=== PATIENT | male | born 1995 | race Caucasian/White ===

== ENCOUNTER 2018-09-19 09:49 | Emergency (ER) | END 2018-09-19 13:21 | disposition home or self-care (01) ==

== ENCOUNTER 2018-12-01 05:12 | Emergency (ER) | payer SELFPAY ==
[~2018-12-01] VITALS: Ht 185.4 cm; Wt 103.9 kg
[~2018-12-01 05:12] MED LIST: FLOV44; PRED20TA PO; RTPRO; TRAM50TA2 PO
[2018-12-01 05:13] VITALS: Ht 185.4 cm; Wt 103.9 kg
[2018-12-01] MEDS ORDERED: KETOROLAC 60 MG INJ IM STA (06:20)
[2018-12-01] MEDS ORDERED: NAPR-985 PO (06:22)
[2018-12-01] MEDS ORDERED: HYDR-4011 PO (06:22)
[2018-12-01] MEDS ORDERED: MED4DP PO (06:22)
[2018-12-01] MEDS ORDERED: CYCL10TA7 PO (06:22)
[2018-12-01] MEDS ORDERED: DIAZEPAM 5 MG TAB PO ONE (06:30)
[2018-12-01] MEDS ORDERED: DEXAMETHASONE 10 MG/ML 1 ML INJ IM ONE (06:30)
[2018-12-01 07:09] VITALS: BP 129/75; PULSE 81; RESP 20
--- NOTE | 2018-12-01 09:05 | ERD ---
ER Documentation Chief Complaint Chief Complaint lower back pain since sat. dnies fall or trauma. works in [employer] HPI 23 yr old male complaining of back pain x 1 week. Patient works for [employer] and has pain with movement. No numbness or tingling. No changes in urination or bowel movements. Patient states it hurts with movement and feels like a spasm type pain on the lateral aspect of bilateral back. Pain is worse on the left side and it radiates down his leg. He denies any changes in urination or bowel mood. Medical problems asthma. NKDA. Surgical history denies. Social history denies ROS All systems reviewed and are negative except as per history of present illness. Medications Home Meds Active Scripts Methylprednisolone* (Medrol* DOSE PACK) 4 Mg/Dose-Pack Tab.ds.pk, 4 MG PO . DIRECTED, #1 PACKET Prov:JEROME OWENS PA-C 12/01/18 Cyclobenzaprine Hcl* (Cyclobenzaprine Hcl*) 10 Mg Tablet, 10 MG PO TID, #15 TAB Prov:JEROME OWENS PA-C 12/01/18 Naproxen* (Naprosyn*) 500 Mg Tablet, 500 MG PO BID PRN for PAIN AND/OR INFLAMMATION, #30 TAB Prov:JEROME WOENS PA-C 12/01/18 Hydrocodone/Acetaminophen ([place] 5-325 Tablet) 1 Each Tablet, 1 TAB PO Q6H PRN for PAIN, #7 TAB Prov:JEROME OWENS PA-C 12/01/18 Tramadol HCl (Tramadol HCl) 50 Mg Tablet, 50 MG PO Q6 PRN for PAIN, #20 TAB Prov:DARIN THAO MD 09/19/18 Prednisone* (Prednisone*) 20 Mg Tab, 40 MG PO DAILY for 4 Days, TAB Prov:CHELO TO PA-C 07/31/16 Reported Medications Fluticasone Propionate* (Flovent* 44) 13 Gm Aer.w.adap 12/24/10 Albuterol Sulfate* (Proventil* Neb) 3 Ml Nebu 10/14/10 Allergies Allergies: Coded Allergies: No Known Drug Allergies (Verified Allergy, Mild, 12/01/18) PMhx/Soc History of Surgery: Yes (TONSILLECTOMY @ 7 YEARS OLD) Anesthesia Reaction: No Hx Neurological Disorder: No Hx Respiratory Disorders: Yes (ASTHMA) Hx Cardiac Disorders: No Hx Psychiatric Problems: No Hx Miscellaneous Medical Probl: No Hx Alcohol Use: Yes (drink alcohol during weekends) Hx Substance Use: No Hx Tobacco Use: Yes Smoking Status: Current every day smoker FmHx Family History: No diabetes, No coronary disease, No other Physical Exam Vitals Vital Signs Date Temp Pulse Resp B/P (MAP) Pulse Ox O2 O2 Flow FiO2 Time Delivery Rate 12/01/18 97.3 81 20 129/75 97 Room Air 07:09 (93) 12/01/18 97.0 84 20 139/78 96 05:13 (98) Physical Exam GENERAL: The patient is well-appearing, well-nourished, in no acute distress CHEST: Clear to auscultation bilaterally. There are no rales, wheezes or rhonchi. HEART: Regular rate and rhythm. No murmurs, clicks, rubs or gallops. No S3 or S4. ABDOMEN:Soft, nontender and nondistended. Good bowel sounds. No rebound or guarding. No gross peritonitis. No gross organomegaly or masses. No Estrada sign or McBurney point tenderness. BACK: No midline or flank tenderness. Under to palpation over left paraspinous muscles with no midline tenderness. Pain extends down left buttock. EXTREMITIES: Equal pulses bilaterally. There is no peripheral clubbing, cyanosis or edema. No focal swelling or erythema. Full range of motion. Grossly neurovascularly intact. NEUROLOGIC: Alert and oriented. Cranial nerves II through XII intact. Motor strength in all 4 extremities with 5 out of 5 strength. Sensation grossly intact. SKIN: There is no apparent rash or petechiae. The skin is warm and dry. Results 24 hrs Current Medications Medications Dose Sig/Nancy Start Time Status Last (Trade) Ordered Route PRN Stop Time Admin Dose Reason Admin Ketorolac 60 mg ONCE STAT 12/01/18 DC 12/01/18 Tromethamine IM 06:20 12/01/18 06:34 (Toradol) 06:21 Diazepam 5 mg ONCE ONCE 12/01/18 DC 12/01/18 (Valium) PO 06:30 12/01/18 06:34 06:31 10 mg ONCE ONCE 12/01/18 DC 12/01/18 Dexamethasone IM 06:30 12/01/18 06:35 (Decadron) 06:31 Procedures/MDM ER course: Decadron Toradol and Valium given ED. MDM: 23-year-old male presenting with back pain. I do not feel that patient has bone injury as his pain is paraspinous. I do not feel x-rays are indicated. Patient is recommended to refrain from working and discharged with supportive medications. Patient is told if symptoms change or worsen to immediately return to the ER. I have low suspicion for cauda equina, discitis or epidural abscess. All questions answered at discharge. Departure Diagnosis: Primary Impression: Back pain Condition: Stable Patient Instructions: Back Pain W/ Sciatica Referrals: MICHAEL GRIFFITH MD Additional Instructions: FOLLOW UP WITH YOUR PRIMARY CARE PHYSICIAN TOMORROW.Return to this facility if you are not improving as expected. JEROME OWENS PA-C Dec 01, 2018 09:05
== END 2018-12-01 07:11 | disposition home or self-care (01) ==
LOC: FTE 05:12
DX: M54.5 Low back pain (principal); J45.909 Unspecified asthma, uncomplicated; F17.210 Nicotine dependence, cigarettes, uncomplicated
CPT/HCPCS: 96372; 99284; J1100; J1885

== ENCOUNTER 2019-04-18 13:50 | Emergency (ER) | payer OTHER ==
[~2019-04-18] VITALS: Ht 172.7 cm; Wt 115.0 kg
[~2019-04-18 13:50] MED LIST changes: +CYCL10TA7 PO; +HYDR-4011 PO; +MED4DP PO; +NAPR-985 PO
--- NOTE | 2019-04-18 14:00 | EN ---
Date/Time of Note Date/Time of Note DATE: 04/18/19 TIME: 13:59 ER Progress Note MSE in ED 3. Right foot pain after a piece of marble dropped on his right foot today. He has bruising and swelling of right foot without additional complaints. Radiologic studies initiated. COLE COBB MD April 18, 2019 14:00
[2019-04-18 14:11] VITALS: BP 151/73; PULSE 101; RESP 20; Ht 172.7 cm; Wt 115.0 kg
[2019-04-18] MEDS ORDERED: HYDROCODONE/APAP (5/325) TAB PO ONE (15:00)
[2019-04-18] MEDS ORDERED: HYDR-4011 PO (15:27)
[2019-04-18] MEDS ORDERED: IBUP-1542 PO (15:27)
--- NOTE | 2019-04-18 15:30 | ERD ---
ER Documentation Chief Complaint Chief Complaint RIGHT FOOT PAIN D/T GRANITE COUNTERTOP FALLING ONTO ROS All systems reviewed and are negative except as per history of present illness. Medications Home Meds Active Scripts Hydrocodone/Acetaminophen ([place] 5-325 Tablet) 1 Each Tablet, 1 TAB PO Q6H PRN for PAIN, #10 TAB Prov:DARIN IBARRA DO 04/18/19 Ibuprofen* (Motrin*) 600 Mg Tab, 600 MG PO Q6H PRN for PAIN, #30 TAB Prov:DARIN IBARRA DO 04/18/19 Methylprednisolone* (Medrol* DOSE PACK) 4 Mg/Dose-Pack Tab.ds.pk, 4 MG PO . DIRECTED, #1 PACKET Prov:JEROME OWENS PA-C 12/01/18 Cyclobenzaprine Hcl* (Cyclobenzaprine Hcl*) 10 Mg Tablet, 10 MG PO TID, #15 TAB Prov:JEROME OWENS PA-C 12/01/18 Naproxen* (Naprosyn*) 500 Mg Tablet, 500 MG PO BID PRN for PAIN AND/OR INFLAMMATION, #30 TAB Prov:JEROME OWENS PA-C 12/01/18 Hydrocodone/Acetaminophen ([place] 5-325 Tablet) 1 Each Tablet, 1 TAB PO Q6H PRN for PAIN, #7 TAB Prov:JEROME OWENS PA-C 12/01/18 Tramadol HCl (Tramadol HCl) 50 Mg Tablet, 50 MG PO Q6 PRN for PAIN, #20 TAB Prov:DARIN THAO MD 09/19/18 Prednisone* (Prednisone*) 20 Mg Tab, 40 MG PO DAILY for 4 Days, TAB Prov:CHELO TO PA-C 07/31/16 Reported Medications Fluticasone Propionate* (Flovent* 44) 13 Gm Aer.w.adap 12/24/10 Albuterol Sulfate* (Proventil* Neb) 3 Ml Nebu 10/14/10 Allergies Allergies: Coded Allergies: No Known Drug Allergies (Verified Allergy, Mild, 12/01/18) PMhx/Soc Medical and Surgical Hx: pt denies Medical Hx, pt denies Surgical Hx History of Surgery: No Anesthesia Reaction: No Hx Neurological Disorder: No Hx Respiratory Disorders: No Hx Cardiac Disorders: No Hx Psychiatric Problems: No Hx Miscellaneous Medical Probl: No Hx Alcohol Use: Yes (occasional drinker.) Hx Substance Use: No Hx Tobacco Use: No Smoking Status: Never smoker Physical Exam Vitals Vital Signs Date Temp Pulse Resp B/P (MAP) Pulse Ox O2 O2 Flow FiO2 Time Delivery Rate 04/18/19 98.6 101 20 151/73 98 14:11 (99) Physical Exam Const: No acute distress Head: Atraumatic Eyes: Normal Conjunctiva ENT: Normal External Ears, Nose and Mouth. Neck: Full range of motion. No meningismus. Resp: Clear to auscultation bilaterally Cardio: Regular rate and rhythm, no murmurs Abd: Soft, non tender, non distended. Normal bowel sounds Skin: No petechiae or rashes Back: No midline or flank tenderness Ext: No cyanosis, or edema Neur: Awake and alert Psych: Normal Mood and Affect Results 24 hrs Current Medications Medications Dose Sig/Nancy Start Time Status Last (Trade) Ordered Route PRN Stop Time Admin Dose Reason Admin 1 tab ONCE ONCE 04/18/19 DC 04/18/19 Acetaminophen PO 15:00 15:12 / 04/18/19 15:01 Hydrocodone Bitart ([place] ()) Departure Diagnosis: Primary Impression: Right foot injury Encounter type: initial encounter Qualified Codes: S99.921A - Unspecified injury of right foot, initial encounter Condition: Fair Patient Instructions: Contusion, Foot Referrals: [facility] YOU HAVE RECEIVED A MEDICAL SCREENING EXAM AND THE RESULTS INDICATE THAT YOU DO NOT HAVE A CONDITION THAT REQUIRES URGENT TREATMENT IN THE EMERGENCY DEPARTMENT. FURTHER EVALUATION AND TREATMENT OF YOUR CONDITION CAN WAIT UNTIL YOU ARE SEEN IN YOUR DOCTORS OFFICE WITHIN THE NEXT 1-2 DAYS. IT IS YOUR RESPONSIBILITY TO MAKE AN APPOINTMENT FOR FOLOW-UP CARE. IF YOU HAVE A PRIMARY DOCTOR --you should call your primary doctor and schedule an appointment IF YOU DO NOT HAVE A PRIMARY DOCTOR YOU CAN CALL OUR PHYSICIAN REFERRAL HOTLINE AT IF YOU CAN NOT AFFORD TO SEE A PHYSICIAN YOU CAN CHOSE FROM THE FOLLOWING [facility] [address] [place] [facility] [address] [facility] [address] [facility] [address] [facility] [address] [facility]. [facility] [address] Additional Instructions: Call your primary care doctor TOMORROW for an appointment during the next 1-2 days.See the doctor sooner or return here if your condition worsens before your appointment time. Ice and elevate for pain and swelling Range of motion exercises when pain improves DARIN IBARRA DO April 18, 2019 15:30
== END 2019-04-18 15:39 | disposition home or self-care (01) ==
LOC: FTE 13:50
DX: S99.921A Unspecified injury of right foot, initial encounter (principal); W20.8XXA Other cause of strike by thrown, projected or falling object, initial encounter; Y92.9 Unspecified place or not applicable
CPT/HCPCS: 73630; Z7502; Z7610